=== PATIENT | female | born 1980 | race Caucasian/White ===

== ENCOUNTER 2016-09-21 19:31 | Emergency (ER) | payer OTHER ==
[2016-09-21] MEDS ORDERED: DIPH,PERTUSS,TET(ADACEL) VAC/PF 0.5 ML (Tdap) IM ONE (19:45)
[2016-09-21] MEDS ORDERED: Amoxicill/Clav 875/125mg Tab 1 TAB TAB PO ONE (19:45)
[2016-09-21 19:46] VITALS: RESP 20; TEMP 98.7
--- NOTE | 2016-09-21 19:51 | PDOC ---
Animal Bite HPI - General Chief Complaint: Animal Bite Stated Complaint: DOG BITE Date Seen by Provider: 09/21/16 Time Seen by Provider: 19:46 Source: POSITIVE: Patient, Spouse Exam Limitations: POSITIVE: No limitations Nurse's Notes Reviewed & Considered: Yes - History of Present Illness Initial Comments: This pleasant 36-year-old female comes in today with a chief complaint of dog bite. Patient was trying to break up a dog fight between her pets at home. Her corgi put her on the right hand resulting in puncture wound to the palmar space in the right hand and middle phalanges right fifth finger. She denies any other injuries, no other symptoms. Have you received a tetanus shot in the past 10 years?: Unknown Body Location Affected: REPORTS: Upper Extremity (R) (Hand) Timing: REPORTS: Abrupt Duration: 1 hour Location at Time of Onset: REPORTS: Home Severity: Moderate Quality: REPORTS: "Pain" Animal: REPORTS: Dog Appearance of Animal: REPORTS: Appeared Healthy Animal Immunization Status: POSITIVE: Up to Date Observation/Capture: POSITIVE: Animal Control Notified, Law Enforcement Notified Context of Attack: REPORTS: Animals Fighting Severity of Attack: POSITIVE: Bitten Location of Injury: POSITIVE: Right Upper Extremity (Hand) Associated Symptoms: REPORTS: Denies Symptoms Any Prior Injuries Related to Current Complaint?: No - Patient Home Medications Home Medications: Home Medications NK [No Home Medications Reported] 09/21/16 - Patient Allergies Allergies/Adverse Reactions: Allergies Allergy/AdvReac Type Severity Reaction Status Date / Time No Known Allergies Allergy Verified 09/21/16 19:33 Past Medical History - heen HEENT History: Denies History Cardiovascular History: Denies History Respiratory History: Pneumonia Gastrointestinal History: Denies History Genitourinary History: Denies History Endocrine History: Denies History Musculoskeletal History: Denies History Prosthesis or Implant: No Neurological History: Denies History Blood Disorders: Denies History Psychiatric History: Denies History History of Sexually Transmitted Diseases: No Cancer History: Denies History History of MDRO: No History of Other Communicable Diseases: No Alcohol Use: None Substance Use Type: None Previous Surgical History: Yes Type / Date of Surgery: wisdom teeth-1995 Anesthesia Reactions: No Malignant Hyperthermia: No Significant Family History: Cancer, Hypertension Additional Family History: Mom-skin cancer, HTN. Grandfather-HTN ROS Constitution: REPORTS: Denies Symptoms Cardiovascular: REPORTS: Denies Cardiac Symptoms Respiratory: REPORTS: Denies Resp Symptoms Neurological: REPORTS: Denies Neuro Symptoms Gastrointestinal: REPORTS: Denies GI Symptoms Endocrine: REPORTS: Denies Symptoms Musculoskeletal: REPORTS: Other (Bitten on right hand, puncture wound to palmar space, puncture wound to right fifth middle phalangeal palmar side.) Genitourinary: REPORTS: Denies Symptoms Eyes: REPORTS: Denies Symptoms ENT: REPORTS: Denies Symptoms Skin: REPORTS: Denies Skin Symptoms Lympathic: REPORTS: Denies Lympathic Symptoms Immunologic: POSITIVE: Denies Symptoms Psychiatric: POSITIVE: Denies Psych Symptoms Animal Bite Physical Exam - General Appearance General Appearance: REPORTS: Alert, Cooperative, No Acute Distress - Skin Skin: POSITIVE: Puncture Wound (Palmar space right hand and palmar right fifth digit, middle phalanges.) - Extremities Extremity Assessment: Normal ROM: (ALL), No Edema: (ALL), Normal Tendon Exam: ( ALL), Tender: (RUE) - Neuro/Vascular/Tendon Neuro/Vascular/Tendon: POSITIVE: Oriented X3, Sensation Normal, No Vascular Compromise - Psych Psych: POSITIVE: Mood Appropriate, Affect Appropriate - Wound Wound General Appearance: POSITIVE: Unapproximated Wound Cleaning/Irrigation: POSITIVE: [place]/Soap Animal Bite Progress - Patient's Progress Pain Medication Addressed: POSITIVE: No Status: POSITIVE: Improved MDM / ED Course: Patient was examined. She received oral Augmentin, and an update of her tetanus vaccination. Assessment: Dog bite, palmar space right hand. Plan: Discharge home Tylenol and ibuprofen as needed, [place] dispensed for breakthrough pain tonight, prescription for Augmentin, and follow up in 24 to 48 hrs. for review of her hold dog bite. - Consult Counseled: POSITIVE: Patient, Family, RE: DX, RE: Need for F/U Patient Care Time - Estimated PCT Patient Care Time (In Minutes): 10 Vital Signs - VS Reviewed Vital Signs Reviewed: Yes Discharge Clinical Impression: Animal bite wound Discharge Disposition: Discharged to Home Condition: Stable Patient Instructions Given at Discharge: Animal Bite (ED)
[2016-09-21] MEDS ORDERED: HYDROcodone-APAP 5 MG -325 MG TABLET PO SCH (20:00)
== END 2016-09-21 20:15 | disposition home or self-care (01) ==
LOC: ER 19:31
DX: S61.451A Open bite of right hand, initial encounter (principal); W54.0XXA Bitten by dog, initial encounter
CPT/HCPCS: 90471; 99282